=== PATIENT | male | born 1990 | race African-American/Black ===

== ENCOUNTER 2019-11-09 14:16 | Emergency (ER) | payer OTHER ==
[2019-11-09] MEDS ORDERED: Lidocaine 1% (PF) 30 ML VIAL ONE (15:33)
--- NOTE | 2019-11-09 15:39 | RAD ---
EXAM: 3 views of the left thumb HISTORY: Cut the tip of the thumb while cutting meat COMPARISON: None FINDINGS: There is no evidence of acute fracture or dislocation. There is a laceration of the tip of the finger with mild overlying soft tissue swelling. No degenerative changes are present. No radiopaque foreign body is seen. IMPRESSION: No evidence of acute osseous abnormality.
[2019-11-09] MEDS ORDERED: Bacitracin 1 PK ONE (17:26)
== END 2019-11-09 17:45 | disposition home or self-care (01) ==
LOC: ERS 14:16
DX: S61.012A Laceration without foreign body of left thumb without damage to nail, initial encounter (principal); F17.290 Nicotine dependence, other tobacco product, uncomplicated; W26.0XXA Contact with knife, initial encounter
CPT/HCPCS: 11760; J2001